=== PATIENT | male | born 1995 | race African-American/Black ===

== ENCOUNTER → 2021-11-20 00:46 | Outpatient (CLI) | payer OTHER, SELFPAY ==
[2021-11-20 12:02] LABS: SARS-CoV-2 RNA PCR Negative
== END ==
PROVIDERS: PCP Emergency Medicine; Visit Provider Emergency Medicine
DX: R68.89 Other general symptoms and signs (principal); Z20.822 Contact with and (suspected) exposure to COVID-19
CPT/HCPCS: C9803; U0003; U0005

== ENCOUNTER 2023-08-22 18:52 | Emergency (ER) | payer OTHER, SELFPAY ==
--- NOTE | 2023-08-22 18:54 | ED.HA ---
HPI - Headache General Chief Complaint: Upper Respiratory Infection Stated Complaint: Migraine Time Seen by Provider: 08/22/23 19:06 Mode of arrival: ambulatory Limitations: no limitations History of Present Illness HPI Narrative: 28-year-old male presents with concern for 3 days of intermittent headache. He reports the headache last 30 minutes to an hour. Reports he has been taking Tylenol. He reports Tylenol usually make the headache go away. He is reporting nasal congestion, drainage, sore throat, low-grade temperature, chills, sweats. He reports nausea with headaches. MD elicited complaint: migraine Related Data Home Medications Medication Instructions Recorded Confirmed loratadine 10 mg tablet 10 mg PO DAILY 08/22/23 08/22/23 Allergies Allergy/AdvReac Type Severity Reaction Status Date / Time No Known Allergies Allergy Verified 08/22/23 19:24 Review of Systems Review of Systems: CONSTITUTIONAL: Reports malaise, chills, sweats, fever. EYES: Denies visual changes, redness, or discharge. ENT: Reports rhinorrhea, congestion, and sore throat. CARDIOVASCULAR: Denies chest pain, palpitations, or edema. RESPIRATORY: Denies cough. Denies dyspnea. GASTROINTESTINAL: Denies abdominal pain, vomiting, diarrhea. Reports nausea SKIN: Denies rash or itching. MUSCULOSKELETAL: Denies myalgia. NEUROLOGIC: Reports intermittent headache. All systems reviewed & are unremarkable except as noted in HPI and below PMFSH Comments At time of signature, agree with nursing past medical, surgical, social and family history. There is no relevant family history pertinent to the presenting complaint Exam Narrative: GENERAL: Well-appearing, well-nourished, and in no acute distress. HEAD: Normocephalic EYES: PERRLA, conjunctivae clear ENT: Nares clear, turbinates edematous and erythematous. Mucous membranes moist. TM pearly nicolas with dull light reflex bilaterally; no tragal tenderness. Oropharynx erythematous without lesions. Tonsils enlarged and without exudate, no drooling, no hoarseness, no trismus, uvula midline. NECK: Supple. No lymphadenopathy CHEST: Clear to auscultation, breath sounds equal. No wheezing, rhonchi, rales, or stridor. No respiratory distress, speaks in full sentences. HEART: Regular rate and rhythm. No murmur heard. SKIN: Warm, dry, no rash. NEURO: Alert and oriented x3. No focal deficits PSYCH: Normal mood and affect Course Course Emergency Course: Patient is aware of diagnosis, understands and agrees to treatment plan. Anticipatory guidance given. Patient agrees to follow-up as directed and is aware of reasons to seek care at the emergency department. Portions of this record may have been created with voice recognition software Level of Care: Express Care Visit Vital Signs Vital signs: Reviewed. Critical Care Time Critical Care Time Critical Care Time: No Discharge Plan Discharge Clinical Impression: Upper respiratory infection Patient Disposition: Home, Self-Care Condition: Stable Instructions: Upper Respiratory Infection (ED) Additional Instructions: Your rapid strep swab was negative today at [facility]. A throat culture will be sent to the laboratory for further testing. If the test is positive, you will receive a phone call within 48 hours and an appropriate antibiotic will be initiated at that time. Your symptoms are likely due to a viral illness, which is not treated with antibiotics. Viral symptoms can be present for up to a few weeks. -Alternate Tylenol and Motrin per package directions for fever or pain. -Antihistamine medication such as Benadryl at night and Zyrtec during the day can help improve symptoms. -Eat and drink things that are easy to swallow, like tea or soup, or popsicles to suck on. -Oral rinses such as: Salt water gargles and/or may use topical anesthetic (eg. Chloraseptic spray) or lozenges to relieve dryness or throat pain). -Frequent hand was
[2023-08-22 19:01] VITALS: BP 142/85; PULSE 71; RESP 16; TEMP 36.8; O2SAT 99
== END 2023-08-22 19:35 | disposition home or self-care (01) ==
PROVIDERS: Emergency Provider Nurse Practitioner; PCP Emergency Medicine
DX: J06.9 Acute upper respiratory infection, unspecified (principal)
CPT/HCPCS: 87081; 87880; 99213; G0463

== ENCOUNTER 2023-09-16 11:23 | Emergency (ER) | payer OTHER, SELFPAY ==
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
[2023-09-16 11:32] VITALS: BP 127/75; PULSE 67; RESP 16; TEMP 36.8; O2SAT 100
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
== END 2023-09-16 12:35 | disposition home or self-care (01) ==
PROVIDERS: Emergency Provider Nurse Practitioner Family; PCP Emergency Medicine
DX: S16.1XXA Strain of muscle, fascia and tendon at neck level, initial encounter (principal); V89.2XXA Person injured in unspecified motor-vehicle accident, traffic, initial encounter
CPT/HCPCS: 72040; 99213; G0463

== ENCOUNTER 2024-01-02 19:48 | Emergency (ER) | payer OTHER, SELFPAY ==
--- NOTE | ~2024-01-02 | XR_ITS ---
XR ankle LT min 3V Ordering provider: Bob Wong MD History: . injury, pain AROUND ANKLE JOINT AFTER TWISTING IT . Comparison: None. FINDINGS: BONES: No acute fracture or dislocation. JOINT SPACES: The ankle mortise is normal. SOFT TISSUES: Normal. IMPRESSION: No acute osseous abnormality left ankle. Reviewed, dictated and finalized at [facility].
[2024-01-02 20:07] VITALS: BP 124/99; PULSE 103; RESP 16; TEMP 37.1; O2SAT 98
--- NOTE | 2024-01-02 21:51 | ED.LOWEXIN ---
HPI - Extremity Injury (Lower) General Chief Complaint: Extremity Injury, Lower Stated Complaint: twisted Left ankle Time Seen by Provider: 01/02/24 21:43 Source: patient Mode of arrival: ambulatory Limitations: no limitations History of Present Illness HPI Narrative: This is a 28 year old male that presents to the ER for left ankle pain after an injury today. Reports he rolled his ankle at work. Reports swelling and pain to the area. Denies decreased range of motion or numbness. Related Data Home Medications Medication Instructions Recorded Confirmed loratadine 10 mg tablet 10 mg PO DAILY 08/22/23 09/16/23 Allergies Allergy/AdvReac Type Severity Reaction Status Date / Time No Known Allergies Allergy Verified 01/02/24 20:11 Review of Systems Review of Systems: CONSTITUTIONAL: Denies fever MUSCULOSKELETAL: Reports joint pain, and myalgia. NEUROLOGIC: Denies numbness All systems reviewed & are unremarkable except as noted in HPI and below PMFSH Past Medical History Medical History (Updated 01/02/24 @ 21:58 by Teresa Carrero PA-C) No active medical problems Social History Social History (Updated 01/02/24 @ 21:55 by Teresa Carrero PA-C) Substance use: current Substance use type: marijuana Exam Narrative: GENERAL: Well-appearing, well-nourished, and in no acute distress. HEAD: Normocephalic, atraumatic. EYES: EOMI. EXTREMITIES: Normal range of motion. Mild edema about the left lateral malleoli. Normal DP pulse. Normal sensation SKIN: Warm, dry, no rash. NEURO: No focal deficits. Alert and oriented x3. PSYCH: Normal mood and affect Course Course Emergency Course: Patient updated on his workup and agrees with plan of care Vital Signs Vital signs: Vital Signs Temperature 98.7 F 01/02/24 20:07 Pulse Rate 103 H 01/02/24 20:07 Respiratory Rate 16 01/02/24 20:07 Blood Pressure 124/99 H 01/02/24 20:07 Pulse Oximetry 98 01/02/24 20:07 Oxygen Delivery Room Air 01/02/24 20:07 Temperature 98.7 F 01/02/24 20:07 Pulse Rate 103 H 01/02/24 20:07 Respiratory Rate 16 01/02/24 20:07 Blood Pressure 124/99 H 01/02/24 20:07 Pulse Oximetry 98 10/08/24 20:07 Oxygen Delivery Room Air 01/02/24 20:07 Procedures Orthopedic Splinting/Casting Injury #1: Splinting/Casting Date: 01/02/24 Splinting/Casting Time: 21:55 Side: left Lower Extremity Injury Location: ankle Lower Extremity Immobilizer: Jason wrap Pre-Procedure Neuro Vascular Exam: normal Post-Procedure Neuro Vascular Exam: normal Other Orthopedic Equipment: crutches MDM - Extremity Injury (Lower) MDM Narrative Medical decision making narrative: Patient presents to the emergency department after a left ankle injury. He is neurovascularly intact. Left ankle x-rays without acute osseous abnormalities. Patient instructed on care of ankle sprain. He is to follow up with primary provider. He was given warnings to return to the ER Differential Diagnosis Differential diagnosis: Likely ankle sprain and strain and ankle fracture Imaging Data Radiologist's impression: ITS Impressions Ankle X-Ray 01/02/24 21:08 IMPRESSION: No acute osseous abnormality left ankle. Critical Care Time Critical Care Time Critical Care Time: No Discharge Plan Discharge Clinical Impression: Ankle sprain and strain Patient Disposition: Home, Self-Care Condition: Stable Instructions: Ankle Sprain (ED) Additional Instructions: Return to the ER if you experience fever, redness and swelling of your extremity, numbness or any other symptoms that are concerning to you Wear JASON wrap and use crutches. No weight on the affected leg until able to bear weight without pain. Ice and elevate extremity. Pain medication as needed and directed. Follow up with your doctor for further care. Prescriptions: No Action loratadine 10 mg Tablet
== END 2024-01-02 22:27 | disposition home or self-care (01) ==
LOC: ANHED 22:20
PROVIDERS: Emergency Provider Physician Assistant; PCP Emergency Medicine
DX: S93.402A Sprain of unspecified ligament of left ankle, initial encounter (principal); X50.0XXA Overexertion from strenuous movement or load, initial encounter
CPT/HCPCS: 73610; 99283

== ENCOUNTER 2024-06-20 13:37 | Emergency (ER) | payer OTHER, SELFPAY ==
[2024-06-20 13:52] VITALS: BP 117/83; PULSE 63; RESP 16; TEMP 37.2; O2SAT 99
--- NOTE | 2024-06-20 14:42 | ED_ITS ---
HPI - Male Genitourinary General Chief complaint: Urogenital-Male Stated complaint: STD Time Seen by Provider: 06/20/24 14:42 Source: patient, RN notes reviewed and old records reviewed Mode of arrival: ambulatory Limitations: no limitations History of Present Illness HPI Narrative: 29-year-old male presents to the [facility] with concerns for an STD. Patient states that he was positive for he believes chlamydia 2 weeks ago, was treated with doxy. Patient reports that he did complete the antibiotic. Distal his primary care provider and they wanted additional testing done. Patient denies any pain. Reports intermittent white discharge for several months. Patient was not a very good historian Onset (ago): month(s) Related Data Home Medications ?Medication ?Instructions ?Recorded ?Confirmed ?Last Taken ?Type loratadine 10 mg tablet 10 mg PO DAILY 08/22/23 06/20/24 Unknown History Allergies Allergy/AdvReac Type Severity Reaction Status Date / Time No Known Allergies Allergy Verified 06/20/24 13:43 Review of Systems Review of Systems: All systems reviewed & are unremarkable except as noted in HPI and below Constitutional: Constitutional: Reports no additional constitutional complaints ENT: Reports system reviewed and no additional complaints, except as documented Cardiovascular: Cardiovascular: Reports no additional cardiovascular complaints, Denies chest pain and Denies dyspnea Respiratory: Respiratory: Reports no additional respiratory complaints, Denies chest congestion, Denies cough and Denies dyspnea Genitourinary: Genitourinary: Reports as per HPI Musculoskeletal: Musculoskeletal: Reports no additional musculoskeletal complaints Integumentary/Breasts: Skin/Breast: Reports system reviewed and no additional complaints, except as docu PMFSH Past Medical History Medical History No active medical problems Social History Social History Substance use: current Substance use type: marijuana Comments At the time of my signature, I reviewed and agree with the nursing past medical, surgical, social, and family history. There is no relevant family history per tinent to the patient complaint. Exam Const: General: cooperative, healthy appearing, comfortable, no acute distress, well developed, alert and well nourished Nutritional Appearance: well nourished Orientation/consciousness: patient oriented x3 Limitations: no limitations HENMT: Head: normal to inspection Eyes: General: appearance normal, both eyes and all related structures Alignment and Position: alignment normal Neck: Neck: normal visual inspection, full ROM, no lymphadenopathy and no meningeal signs Chest: Chest palpation & inspection: normal inspection of the chest Resp: Effort & Inspection: normal respiratory effort and able to speak in complete sentences Auscultation: clear to auscultation bilaterally, no crackles, no rales, no rhonchi and no wheezes Cardio: Rate: regular rate Skin: General skin exam: normal color and no rashes or lesions noted Neuro: General: patient oriented x3, gait normal, moves all extremities and no meningeal signs Cognition (Neuro): normal cognition Speech: normal speech Gait exam (Neuro): Normal gait present Extrem: General: normal to inspection, full ROM, capillary refill normal and normal gait Psych: Appearance: grossly normal and well kempt Mental Status: mental status grossly normal Speech and movement: Normal speech and movement present and Clear speech present Affect: normal affect Attitude: cooperative Course Course Level of Care: Express Care Visit Vital Signs Vital signs: Vital Signs Temperature 99.0 F 06/20/24 13:52 Pulse Rate 63 06/20/24 13:52 Respiratory Rate 16 06/20/24 13:52 Blood Pressure 117/83 06/20/24 13:52 Pulse Oximetry 99 06/20/24 13:52 Oxygen Delivery Room Air 06/20/24 13:52 Temperature 99.0 F 06/20/24 13:52 Pulse Rate 63 06/20/24 13:52 Respiratory Rate 16 06/20/24 13:52 Blood Pressure 117/83 06/20/24 13:52 Pulse Oximetry 99 06/20/24 13:52 Oxygen Delivery Room Air 06/20/24 13:52 Reviewed MDM - Male Genitourinary MDM Narrative Medical decision making narrative: Patient sitting in exam room. Nontoxic, vitals stable. Patient in no acute distress. Patient presents requesting STD testing. Discussed that we only test for 3. Unable to do blood work that patient is requesting Will treat when results return. Patient was recently treated for he believes chlamydia with doxycycline. Patient appropriate for outpatient treatment with close follow-up Discharge instructions reviewed with patient, as well as provided in writing per nursing staff. The instructions also include specific and strict return/GO TO THE ER as well as f/u information. All questions have been answered, and the patient deny any further questions with discharge and discharge plan. Some parts of this dictation were generated by voice recognition software and may contain typographical and/or grammatical inaccuracies. Differential Diagnosis Differential diagnosis: Likely urinary tract infection, urethritis and other (STD) Lab Data Labs: Lab Results 06/20/24 Range/Units 14:49 C. trachomatis (PCR) Pending N. gonorrhoeae (PCR) Pending T. vaginalis (PCR) Pending Reviewed Critical Care Time Critical Care Time Critical Care Time: No Discharge Plan Discharge Clinical Impression: Concern about STD in male without diagnosis Patient Disposition: Home, Self-Care Condition: Stable Instructions: Antibiotic Form, Sexually Transmitted Diseases (ED), Safe Sex Practices (ED) Additional Instructions: You have been tested for chlamydia, gonorrhea and Trichomonas only. You will be called if your tests are positive. Follow-up with primary care this week. Since you have tested positive for chlamydia in the past is recommended you do get further testing, handout for STD clinics has been given to you Patient Language: Bangladeshi Prescriptions: No Action loratadine 10 mg Tablet 10 mg PO DAILY pseudoephedrine HCl [12 Hour Decongestant] 120 mg tablet extended release 120 mg PO Q12H PRN (Reason: nasal congestion) Qty: 20 0RF ibuprofen 600 mg tablet 600 mg PO Q6H PRN (Reason: pain) Qty: 30 0RF Follow-up/Referrals: Giovanni Lara MD [Primary Care Provider] - 3 Days ([facility] follow-up) Time of Disposition: 14:47
[2024-06-20 20:49] LABS: Trichomonas Vag PCR NOT DETECTED (NOT DETECTE)
[2024-06-20 21:12] LABS: Chlamydia trachomatis NOT DETECTED (NOT DETECTE); Neisseria gonorrhoeae PCR NOT DETECTED (NOT DETECTE)
== END 2024-06-20 14:51 | disposition home or self-care (01) ==
PROVIDERS: Emergency Provider Nurse Practitioner; PCP Emergency Medicine
DX: Z20.2 Contact with and (suspected) exposure to infections with a predominantly sexual mode of transmission (principal); F12.90 Cannabis use, unspecified, uncomplicated
CPT/HCPCS: 87491; 87591; 87661; 99213; G0463